=== PATIENT | female | born 1955 | race Caucasian/White ===

== ENCOUNTER → 2016-12-30 | Outpatient (CLI) | payer OTHER ==
[2014-04-03 16:20] VITALS: BP 137/77
--- NOTE | 2016-12-30 12:30 | KCIC ---
DATE: 12/30/2016 EXAM: MAMMO NATE SCREENING BILATERAL HISTORY: Routine screening COMPARISON: 12/02/2015 This study was interpreted with the benefit of Computerized Aided Detection (CAD). FINDINGS: Breast Density: SCATTERED The breast parenchyma shows scattered fibroglandular densities. Breast parenchyma level B. There are no dominant suspicious masses, suspicious microcalcifications or evidence of architectural distortion. Intramammary lymph nodes identified in the right breast similar to prior exam. Benign-appearing calcifications identified in the bilateral breasts IMPRESSION: Benign findings. BI-RADS CATEGORY: 2 BENIGN FINDING RECOMMENDED FOLLOW-UP: 12M 12 MONTH FOLLOW-UP PQRS compliance statement: Patient information was entered into a reminder system with a target due date 12/30/2017 for the next mammogram. Mammography is a sensitive method for finding small breast cancers, but it does not detect them all and is not a substitute for careful clinical examination. A negative mammogram does not negate a clinically suspicious finding and should not result in delay in biopsying a clinically suspicious abnormality. "Our facility is accredited by the [employer] Mammography [employer]."
== END | disposition home or self-care (01) ==
LOC: KCIC MAMMO 08:30
PROVIDERS: ATTEND Family Medicine
DX: Z12.31 Encounter for screening mammogram for malignant neoplasm of breast (principal)
CPT/HCPCS: 77063; G0202; 77067

== ENCOUNTER → 2017-01-13 | Outpatient (CLI) | payer OTHER ==
[2014-04-03 16:20] VITALS: BP 137/77
[~2017-01-13] MED LIST: IOHEXOL 240 MG/ML 50ML VIAL. PO ONE; IOHEXOL 300 MG/ML 100ML VIAL. IV ONE
--- NOTE | 2017-01-13 13:27 | KCIC ---
CT ABDOMEN W/CONTRAST dated 01/13/2017 10:10 AM Indication: Diarrhea bloating abdominal cramping indigestion for one and a half weeks Comparison: No comparison is available. Technique: Contiguous axial imaging of the abdomen performed after the administration of 89 cc Omnipaque 300. One or more of the following individualized dose reduction techniques were utilized for this examination: 1. Automated exposure control 2. Adjustment of the mA and/or kV according to patient size 3. Use of iterative reconstruction technique Findings: Limited images of lung bases are clear. Heart size within normal limits. Scattered coronary calcifications. Liver, spleen, pancreas, adrenal glands, gallbladder and kidneys are unremarkable. No hydronephrosis. Partially opacified GI tract is normal in caliber and contour. No focal bowel wall thickening. No inflammatory stranding in the mesentery. The appendix was not included on the study. No lymphadenopathy or ascites. Small hiatal hernia. Bone windows show no acute findings. Mild multilevel spondylosis. IMPRESSION: No acute abnormality of abdomen. Electronically signed by: Tae Bar MD (01/13/2017 1:24 PM) [id number]
== END | disposition home or self-care (01) ==
LOC: KCIC CT 08:46
PROVIDERS: ATTEND Nurse Practitioner Family
DX: K44.9 Diaphragmatic hernia without obstruction or gangrene (principal); M47.9 Spondylosis, unspecified; K30 Functional dyspepsia; R19.7 Diarrhea, unspecified; R14.0 Abdominal distension (gaseous)
CPT/HCPCS: 74160; Q9966; Q9967

== ENCOUNTER → 2018-01-01 | Outpatient (CLI) | payer OTHER ==
[2014-04-03 16:20] VITALS: BP 137/77
--- NOTE | 2018-01-01 13:33 | KCIC ---
Bilateral digital screening mammograms with 3-D tomosynthesis: Reason for examination: Routine screening. Comparison is made to previous studies dated 12/30/2016 and 12/02/2015. Bilateral mammograms in CC and oblique projections were obtained with 2-D imaging and 3-D tomosynthesis imaging on a Siemens Inspiration unit and reviewed on the workstation. Interpretation was made with the benefit of CAD. The skin and nipples show no abnormalities. No abnormal axillary lymph nodes are seen. The breast parenchyma shows scattered fatty and fibroglandular density. (Breast density: Category B.) There continue to be small parenchymal densities on the right which are unchanged. There are some benign calcifications. There are no new dominant masses, suspicious calcifications or architectural distortion. Impression: No evidence of malignancy. Recommend routine screening. BI-RAD Category 2: Benign. "Our facility is accredited by the [employer] Mammography [employer]." This patient's information has been entered into a reminder system for the patient to be notified with the results of her examination and a target date for the next mammogram. Electronically signed by: Theresa Guerra MD (01/01/2018 1:29 PM) [id number]
== END | disposition home or self-care (01) ==
LOC: KCIC MAMMO 10:43
PROVIDERS: ATTEND Family Medicine
DX: Z12.31 Encounter for screening mammogram for malignant neoplasm of breast (principal); I10 Essential (primary) hypertension; E11.9 Type 2 diabetes mellitus without complications; E78.00 Pure hypercholesterolemia, unspecified; I25.10 Atherosclerotic heart disease of native coronary artery without angina pectoris
CPT/HCPCS: 77063; 77067

== ENCOUNTER → 2019-04-22 | Outpatient (CLI) | payer MEDICARE, OTHER ==
[2014-04-03 16:20] VITALS: BP 137/77
--- NOTE | 2019-04-22 18:03 | KCIC ---
Bone Densitometry History: Osteopenia, menopausal Findings: Bone Densitometry was performed with dual photon absorption of the lumbar spine and proximal femurs. Lumbar Spine: Bone density is 1.035 g/cm2 for L1-L4. T-score is -0.1. Z-score is 1.1. Left femoral neck: Bone density is 0.765 g/cm2. T-score is -1.5. Z-score is -0.2. IMPRESSION: Left femoral neck bone mineral density corresponds to 19 percent bone mineral density loss compared peak young reference. Follow-up bone densitometry exam in 48-36 months is recommended for additional markers are presented. World Health Organization definition of osteoporosis and osteopenia for women: normal equals T score at or above -1.0 standard deviations; osteopenia equals T score between -1.0 and -2.5 standard deviations; osteoporosis equals T score at or below -2.5 standard deviations. Electronically signed by: Car Rebollar MD (04/22/2019 6:00 PM) [facility]
--- NOTE | 2019-04-22 19:50 | KCIC ---
Bilateral digital screening mammograms with 3-D tomosynthesis: Reason for examination: Routine screening. Comparison is made to previous studies dated back to 11/28/2014. Bilateral mammograms in CC and oblique projections were obtained with 2-D imaging and 3-D tomosynthesis imaging on a Siemens Inspiration unit and reviewed on the workstation. Interpretation was made with the benefit of CAD. The skin and nipples show no abnormalities. No abnormal axillary lymph nodes are seen. The breast parenchyma is predominantly fatty. (Breast density: Category A.) There continue to be small parenchymal densities seen bilaterally which are stable. There are no new dominant masses, suspicious calcifications or architectural distortion. Benign calcifications are present. Impression: No evidence of malignancy. Recommend routine screening. BI-RAD Category 2: Benign. "Our facility is accredited by the [employer] Mammography [employer]." This patient's information has been entered into a reminder system for the patient to be notified with the results of her examination and a target date for the next mammogram. Electronically signed by: Theresa Guerra MD (04/22/2019 7:47 PM) [id number]
== END | disposition home or self-care (01) ==
LOC: KCIC MAMMO 15:02
PROVIDERS: ATTEND Family Medicine
DX: Z12.31 Encounter for screening mammogram for malignant neoplasm of breast (principal); N64.89 Other specified disorders of breast; M85.80 Other specified disorders of bone density and structure, unspecified site; E11.9 Type 2 diabetes mellitus without complications; Z78.0 Asymptomatic menopausal state
CPT/HCPCS: 77063; 77067; 77080

== ENCOUNTER → 2020-04-27 | Outpatient (CLI) | payer MEDICARE ==
[2014-04-03 16:20] VITALS: BP 137/77
--- NOTE | 2020-04-27 10:29 | KCIC ---
EXAM: Bilateral digital screening mammogram with tomosynthesis. HISTORY: 64-year-old female presents for screening mammography. TECHNIQUE: Full-field digital craniocaudal and mediolateral oblique 2D and 3D tomosynthesis images of both breasts are obtained for evaluation. Computer aided detection was applied. COMPARISON: 04/22/2019, 01/01/2018, 12/30/2016 BREAST PARENCHYMAL DENSITY: Level B - Scattered fibroglandular densities. FINDINGS: There is an asymmetry within the 5:30 position of the right breast at anterior to mid depth which contains calcifications. This is is slightly more conspicuous on 2-D images compared to prior studies. However, this is stable on 3-D images. The long-term stability favors benignity. There are a dditional areas of nodularity and asymmetry within both breasts which are also stable in appearance. There is no architectural distortion. IMPRESSION: BI-RADS Category 2: Benign finding(s). RECOMMENDATION: Annual mammography is recommended. If your mammogram demonstrates that you have dense breast tissue, which could hide abnormalities, and if you have other risk factors for breast cancer that have been identified, you might benefit from s upplemental screening tests that may be suggested by your ordering physician. Dense breast tissue, i n and of itself, is a relatively common condition. This information is not provided to cause undue c oncern, but rather to raise your awareness and to promote discussion with your physician regarding th e presence of other risk factors, in addition to dense breast tissue. A report of your mammography re sults will be sent to you and your physician. You should contact your physician if you have any ques tions or concerns regarding this report. Mammography is a sensitive method for finding small breast cancers, but it does not detect them all a nd is not a substitute for careful clinical examination. A negative mammogram does not negate a clin ically suspicious finding and should not result in delay in biopsying a clinically suspicious abnorma lity. PQRS compliance statement - Patient information was entered into a reminder system with a target due date for the next mammogram. "Our facility is accredited by the [employer] Mammography [employer]." Electronically signed by: Carrie Ibanez MD (04/27/2020 10:27 AM) [email or web address]
== END ==
LOC: KCIC MAMMO 09:07
PROVIDERS: ATTEND Family Medicine
DX: Z12.31 Encounter for screening mammogram for malignant neoplasm of breast (principal)
CPT/HCPCS: 77063; 77067

== ENCOUNTER → 2021-04-29 | Outpatient (CLI) | payer MEDICARE ==
[2014-04-03 16:20] VITALS: BP 137/77
--- NOTE | 2021-04-29 12:14 | KCIC ---
Bilateral digital screening mammograms with 3-D tomosynthesis: Reason for examination: Routine screening. Comparison is made to previous studies dated back to 11/28/2014. Bilateral mammograms in CC and oblique projections were obtained with 2-D imaging and 3-D tomosynthes is imaging on a Siemens Inspiration unit and reviewed on the workstation. Interpretation was made wit h the benefit of CAD. The skin and nipples show no abnormalities. No abnormal axillary lymph nodes are seen. The breast par enchyma shows scattered fatty and fibroglandular density. (Breast density: Category B.) There are sma ll nodular densities and scattered calcifications present in the right breast which are stable. There are no new dominant masses, suspicious calcifications or architectural distortion. Benign calcificat ions are present. Impression: No evidence of malignancy. Recommend routine screening. BI-RAD Category 2: Benign. "Our facility is accredited by the [employer] Mammography [employer]." This patient's information has been entered into a reminder system for the patient to be notified wit h the results of her examination and a target date for the next mammogram. Electronically signed by: Theresa Guerra MD (04/29/2021 12:11 PM) [email or web address]
== END ==
LOC: KCIC MAMMO 10:50
PROVIDERS: ATTEND Family Medicine
DX: Z12.31 Encounter for screening mammogram for malignant neoplasm of breast (principal)
CPT/HCPCS: 77063; 77067